=== PATIENT | male | born 2000 | race Two or more races ===

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

== ENCOUNTER 2022-09-11 09:52 | Inpatient (IN) | payer OTHER ==
[~2022-09-11] VITALS: Ht 180.3 cm; Wt 54.1 kg
[2022-09-11 12:18] LABS: AMPHET/METH SCREEN,URINE NEGATIVE (NEGATIVE); BARBITURATE SCREEN, URINE NEGATIVE (NEGATIVE); BENZODIAZEPINES SCREEN,URINE POSITIVE (NEGATIVE); CANNABINOID SCREEN,URINE POSITIVE (NEGATIVE); COCAINE SCREEN,URINE NEGATIVE (NEGATIVE); METHADONE SCREEN, URINE NEGATIVE (NEGATIVE); OPIATE SCREEN,URINE NEGATIVE (NEGATIVE); PHENCYCLIDINE SCREEN,URINE NEGATIVE (NEGATIVE)
[2022-09-11] MEDS ORDERED: ONDANSETRON HCL 4 MG/2 ML VIAL IVP PRN (13:45)
[2022-09-11] MEDS ORDERED: IPRATROPIUM BROMIDE 0.5 MG/2.5 ML NEB SOLUTION NEB PRN (13:45)
[2022-09-11] MEDS ORDERED: DOCUSATE SODIUM 100 MG CAPSULE PO PRN (13:45)
[2022-09-11] MEDS ORDERED: ACETAMINOPHEN 325 MG TABLET PO PRN (13:45)
[2022-09-11] MEDS ORDERED: ALBUTEROL SULFATE 2.5 MG/0.5 ML NEB SOLUTION NEB PRN (13:45)
[2022-09-11] MEDS ORDERED: BISACODYL 10 MG RECTAL RECTAL SUPPOSITORY PR PRN (13:45)
[2022-09-11 20:10] VITALS: BP 137/77
[2022-09-12 00:04] VITALS: BP 109/63
[2022-09-12 04:31] VITALS: BP 106/73
[2022-09-12 08:24] VITALS: BP 126/79
[2022-09-12 15:19] VITALS: BP 134/74
[2022-09-12 19:16] VITALS: BP 121/72
[2022-09-13 04:43] VITALS: BP 123/70
[2022-09-13 09:37] VITALS: BP 128/72
== END 2022-09-13 13:21 | DRG 897 ==
LOC: EMS 09:57 → AHU 14:39 → 6S 18:58
PROVIDERS: ADMIT Internal Medicine; ATTEND Internal Medicine
DX: F13.239 Sedative, hypnotic or anxiolytic dependence with withdrawal, unspecified (principal); F32.A Depression, unspecified; F12.90 Cannabis use, unspecified, uncomplicated; F06.4 Anxiety disorder due to known physiological condition; Z87.891 Personal history of nicotine dependence
CPT/HCPCS: 80307; 99285

== ENCOUNTER 2022-09-17 11:42 | Inpatient (IN) | payer OTHER ==
[~2022-09-17] VITALS: Ht 182.9 cm; Wt 50.0 kg
[2022-09-17 13:16] LABS: BASOPHILS % (AUTO) 0.3 % (0.0-2.0); EOSINOPHILS % (AUTO) 0 % (1.0-6.0); HEMATOCRIT 47.4 % (41-53); HEMOGLOBIN 16.7 g/dL (13.5-17.5); LYMPHOCYTES # (AUTO) 1.1 K/uL (1.0-4.8); LYMPHOCYTES % (AUTO) 11.2 % (22.0-44.0); MEAN CORPUSCULAR HEMOGLOBIN 30.7 pg (26.0-34.0); MEAN CORPUSCULAR HGB CONC 35.3 G/dL (31.0-37.0); MEAN CORPUSCULAR VOLUME 87 fL (80-100); MONOCYTES # (AUTO) 0.7 K/uL (0.1-1.0); MONOCYTES % (AUTO) 7.7 % (2.0-9.0); NEUTROPHILS # (AUTO) 7.9 K/uL (1.8-7.7); NEUTROPHILS % (AUTO) 80.8 % (40.0-70.0); PLATELET COUNT (AUTO) 234 K/uL (150-450); RED BLOOD CELL COUNT(AUTO) 5.44 MIL/uL (4.50-5.90)
[2022-09-17 13:24] LABS: ANION GAP 15 mmol/L (8-16); CALCIUM, TOTAL 8.9 mg/dL (8.8-10.5); CARBON DIOXIDE 23 mmol/L (22-29); CHLORIDE 99 mmol/L (98-107); CREATININE 0.69 mg/dL (0.60-1.30); GLOMERULAR FILTR. RATE CALC > 60 mL/min (>60); GLUCOSE,RANDOM 87 mg/dL (70-110); POTASSIUM 3.2 mmol/L (3.5-5.1); SODIUM SERUM 137 mmol/L (136-145); UREA NITROGEN, BLOOD 10 mg/dL (7-18)
[2022-09-17 13:30] LABS: ALANINE AMINOTRANSFERASE 21 U/L (12-78); ALBUMIN 4.9 g/dL (3.4-5.0); ALKALINE PHOSPHATASE 108 U/L (46-116); ASPARTATE AMINOTRANSFERASE 22 U/L (15-37); BILIRUBIN,TOTAL 1.1 mg/dL (0.1-1.0)
[2022-09-17 15:03] LABS: COVID AG,FIA SOURCE NASOPHARYNGEAL
[2022-09-17] MEDS ORDERED: ONDANSETRON HCL 4 MG/2 ML VIAL IVP PRN (15:15)
[2022-09-17] MEDS ORDERED: ACETAMINOPHEN 325 MG TABLET PO PRN (15:15)
[2022-09-17 20:50] VITALS: BP 114/83
[2022-09-17] MEDS ORDERED: POTASSIUM CHLORIDE 20 MEQ ER TABLET PO ONE (22:15)
[2022-09-18 04:01] VITALS: BP 127/91
[2022-09-18 10:32] VITALS: BP 125/86
[2022-09-18] MEDS ORDERED: MAGNESIUM HYDROXIDE SUSPENSION 30 ML UDCUP PO PRN (12:15)
[2022-09-18] MEDS ORDERED: BISACODYL 10 MG RECTAL RECTAL SUPPOSITORY PR PRN (12:15)
[2022-09-18] MEDS ORDERED: ALBUTEROL SULFATE 2.5 MG/0.5 ML NEB SOLUTION NEB PRN (12:15)
[2022-09-18] MEDS ORDERED: ONDANSETRON HCL 4 MG/2 ML VIAL IVP PRN (12:15)
[2022-09-18] MEDS ORDERED: IPRATROPIUM BROMIDE 0.5 MG/2.5 ML NEB SOLUTION NEB PRN (12:15)
[2022-09-18 14:31] LABS: AMPHET/METH SCREEN,URINE NEGATIVE (NEGATIVE); BARBITURATE SCREEN, URINE NEGATIVE (NEGATIVE); BENZODIAZEPINES SCREEN,URINE NEGATIVE (NEGATIVE); CANNABINOID SCREEN,URINE POSITIVE (NEGATIVE); COCAINE SCREEN,URINE NEGATIVE (NEGATIVE); METHADONE SCREEN, URINE NEGATIVE (NEGATIVE); OPIATE SCREEN,URINE NEGATIVE (NEGATIVE); PHENCYCLIDINE SCREEN,URINE NEGATIVE (NEGATIVE)
[2022-09-18] MEDS: HEPARIN SODIUM,PORCINE 5,000 UNITS/ML VIAL SQ SCH ×2 (16:00→23:31)
[2022-09-18 17:13] VITALS: BP 125/97
[2022-09-18 20:15] VITALS: BP 106/88
[2022-09-19] MEDS: HEPARIN SODIUM,PORCINE 5,000 UNITS/ML VIAL SQ SCH ×3 (08:00→23:35)
[2022-09-19 08:11] VITALS: BP 117/50
[2022-09-19] MEDS: PANTOPRAZOLE SODIUM 40 MG DR TABLET PO SCH (09:00)
[2022-09-19 15:19] VITALS: BP 127/88
[2022-09-19 19:22] VITALS: BP 126/83
[2022-09-19] MEDS: RisperiDONE 1 MG TABLET PO SCH (19:31)
[2022-09-19] MEDS: ACETAMINOPHEN 325 MG TABLET PO PRN (19:31)
[2022-09-19] MEDS: ZOLPIDEM TARTRATE 5 MG TABLET PO PRN (22:04)
[2022-09-20 05:00] VITALS: BP 112/95
[2022-09-20] MEDS: HEPARIN SODIUM,PORCINE 5,000 UNITS/ML VIAL SQ SCH ×2 (08:00→16:03)
[2022-09-20] MEDS: PANTOPRAZOLE SODIUM 40 MG DR TABLET PO SCH (08:08)
[2022-09-20] MEDS: RisperiDONE 1 MG TABLET PO SCH (08:08)
[2022-09-20 09:56] VITALS: BP 116/96
[2022-09-20 17:02] VITALS: BP 118/60
[2022-09-20 19:51] VITALS: BP 145/85
[2022-09-20] MEDS: RisperiDONE 2 MG TABLET PO SCH (20:11)
[2022-09-20] MEDS: ZOLPIDEM TARTRATE 5 MG TABLET PO PRN (20:11)
[2022-09-21 07:57] VITALS: BP 111/73
[2022-09-21] MEDS: PANTOPRAZOLE SODIUM 40 MG DR TABLET PO SCH (08:56)
[2022-09-21] MEDS: RisperiDONE 2 MG TABLET PO SCH ×2 (08:56→20:35)
[2022-09-21] MEDS: HEPARIN SODIUM,PORCINE 5,000 UNITS/ML VIAL SQ SCH ×3 (09:09→15:14)
[2022-09-21 15:13] VITALS: BP 135/92
[2022-09-21 19:42] VITALS: BP 108/72
[2022-09-22 04:35] VITALS: BP 122/77
[2022-09-22 08:00] VITALS: BP 121/77
[2022-09-22] MEDS: RisperiDONE 2 MG TABLET PO SCH ×2 (08:04→20:03)
[2022-09-22] MEDS: PANTOPRAZOLE SODIUM 40 MG DR TABLET PO SCH (08:04)
[2022-09-22] MEDS: HEPARIN SODIUM,PORCINE 5,000 UNITS/ML VIAL SQ SCH ×4 (08:04→20:07)
[2022-09-22 15:31] VITALS: BP 107/68
[2022-09-22 19:37] VITALS: BP 120/75
[2022-09-23 04:20] VITALS: BP 125/70
[2022-09-23] MEDS: RisperiDONE 2 MG TABLET PO SCH ×2 (08:33→19:59)
[2022-09-23] MEDS: HEPARIN SODIUM,PORCINE 5,000 UNITS/ML VIAL SQ SCH ×3 (08:33→22:35)
[2022-09-23] MEDS: PANTOPRAZOLE SODIUM 40 MG DR TABLET PO SCH (08:33)
[2022-09-23 09:27] VITALS: BP 140/69
[2022-09-23 16:05] VITALS: BP 135/81
[2022-09-23 20:29] VITALS: BP 114/82
[2022-09-23] MEDS: ZOLPIDEM TARTRATE 5 MG TABLET PO PRN (21:00)
[2022-09-24 05:02] VITALS: BP 136/82
[2022-09-24] MEDS: THIAMINE 100 MG TABLET PO SCH (08:48)
[2022-09-24] MEDS: HEPARIN SODIUM,PORCINE 5,000 UNITS/ML VIAL SQ SCH ×3 (08:48→22:41)
[2022-09-24] MEDS: FOLIC ACID 1 MG TABLET PO SCH (08:48)
[2022-09-24] MEDS: PANTOPRAZOLE SODIUM 40 MG DR TABLET PO SCH (08:48)
[2022-09-24] MEDS: RisperiDONE 2 MG TABLET PO SCH ×2 (08:48→20:35)
[2022-09-24 08:51] VITALS: BP 116/68
[2022-09-24 11:40] LABS: BASOPHILS % (AUTO) 0.4 % (0.0-2.0); EOSINOPHILS % (AUTO) 1.4 % (1.0-6.0); HEMATOCRIT 44.7 % (41-53); HEMOGLOBIN 15.6 g/dL (13.5-17.5); LYMPHOCYTES # (AUTO) 0.9 K/uL (1.0-4.8); LYMPHOCYTES % (AUTO) 16.7 % (22.0-44.0); MEAN CORPUSCULAR HEMOGLOBIN 30.9 pg (26.0-34.0); MEAN CORPUSCULAR HGB CONC 34.9 G/dL (31.0-37.0); MEAN CORPUSCULAR VOLUME 88 fL (80-100); MONOCYTES # (AUTO) 0.7 K/uL (0.1-1.0); MONOCYTES % (AUTO) 12.7 % (2.0-9.0); NEUTROPHILS # (AUTO) 3.7 K/uL (1.8-7.7); NEUTROPHILS % (AUTO) 68.8 % (40.0-70.0); PLATELET COUNT (AUTO) 209 K/uL (150-450); RED BLOOD CELL COUNT(AUTO) 5.05 MIL/uL (4.50-5.90); RED CELL DISTRIBUTION WIDTH 13.4 % (11.5-14.5)
[2022-09-24 12:12] LABS: ALANINE AMINOTRANSFERASE 16 U/L (12-78); ALBUMIN 3.9 g/dL (3.4-5.0); ALKALINE PHOSPHATASE 86 U/L (46-116); ANION GAP 8 mmol/L (8-16); ASPARTATE AMINOTRANSFERASE 19 U/L (15-37); BILIRUBIN,TOTAL 0.5 mg/dL (0.1-1.0); CALCIUM, TOTAL 8.5 mg/dL (8.8-10.5); CARBON DIOXIDE 29 mmol/L (22-29); CHLORIDE 101 mmol/L (98-107); CREATININE 0.65 mg/dL (0.60-1.30); GLOMERULAR FILTR. RATE CALC > 60 mL/min (>60); GLUCOSE,RANDOM 111 mg/dL (70-110); PHOSPHORUS 3.6 mg/dL (2.5-4.9); POTASSIUM 4.1 mmol/L (3.5-5.1); SODIUM SERUM 138 mmol/L (136-145); TOTAL PROTEIN, SERUM 6.9 g/dL (6.4-8.2); UREA NITROGEN, BLOOD 14 mg/dL (7-18)
[2022-09-24 15:19] VITALS: BP_SYST 115; BP_SYST 94; BP_DIAS 56; BP_DIAS 66
[2022-09-24] MEDS: ZOLPIDEM TARTRATE 5 MG TABLET PO PRN (20:35)
[2022-09-24 21:45] VITALS: BP 105/64
[2022-09-25 06:40] VITALS: BP 108/64
[2022-09-25] MEDS: THIAMINE 100 MG TABLET PO SCH (08:35)
[2022-09-25] MEDS: PANTOPRAZOLE SODIUM 40 MG DR TABLET PO SCH (08:36)
[2022-09-25] MEDS: HEPARIN SODIUM,PORCINE 5,000 UNITS/ML VIAL SQ SCH ×2 (08:36→16:00)
[2022-09-25] MEDS: FOLIC ACID 1 MG TABLET PO SCH (08:36)
[2022-09-25] MEDS: RisperiDONE 2 MG TABLET PO SCH ×2 (08:36→20:18)
[2022-09-25 10:22] VITALS: BP 117/72
[2022-09-25 17:13] VITALS: BP 118/54
[2022-09-25 20:16] VITALS: BP 109/66
[2022-09-25] MEDS: ZOLPIDEM TARTRATE 5 MG TABLET PO PRN (20:18)
[2022-09-25] MEDS ORDERED: MELATONIN 3 MG TABLET PO PRN (22:45)
[2022-09-26 04:02] VITALS: BP 106/66
[2022-09-26] MEDS: FOLIC ACID 1 MG TABLET PO SCH (08:03)
[2022-09-26] MEDS: RisperiDONE 2 MG TABLET PO SCH ×2 (08:03→20:03)
[2022-09-26] MEDS: THIAMINE 100 MG TABLET PO SCH (08:03)
[2022-09-26] MEDS: PANTOPRAZOLE SODIUM 40 MG DR TABLET PO SCH (08:03)
[2022-09-26] MEDS: HEPARIN SODIUM,PORCINE 5,000 UNITS/ML VIAL SQ SCH ×3 (08:03→16:55)
[2022-09-26 08:32] VITALS: BP 133/76
[2022-09-26] MEDS: ACETAMINOPHEN 325 MG TABLET PO PRN (09:18)
[2022-09-26 15:56] VITALS: BP 124/77
[2022-09-26 19:55] VITALS: BP 118/70
[2022-09-27] MEDS: HEPARIN SODIUM,PORCINE 5,000 UNITS/ML VIAL SQ SCH ×3 (00:30→15:14)
[2022-09-27 04:18] VITALS: BP 105/56
[2022-09-27] MEDS: PANTOPRAZOLE SODIUM 40 MG DR TABLET PO SCH (08:58)
[2022-09-27] MEDS: THIAMINE 100 MG TABLET PO SCH (08:58)
[2022-09-27] MEDS: FOLIC ACID 1 MG TABLET PO SCH (08:58)
[2022-09-27] MEDS: RisperiDONE 2 MG TABLET PO SCH ×2 (08:58→20:39)
[2022-09-27 08:59] VITALS: BP 118/68
[2022-09-27 17:27] VITALS: BP 107/67
[2022-09-27] MEDS: ZOLPIDEM TARTRATE 5 MG TABLET PO PRN (20:39)
[2022-09-27 20:52] VITALS: BP 114/61
[2022-09-27] MEDS: ACETAMINOPHEN 325 MG TABLET PO PRN (22:38)
[2022-09-28 05:13] VITALS: BP 127/71
[2022-09-28 07:35] VITALS: BP 114/62
[2022-09-28] MEDS: HEPARIN SODIUM,PORCINE 5,000 UNITS/ML VIAL SQ SCH ×3 (08:00→15:40)
[2022-09-28] MEDS: PANTOPRAZOLE SODIUM 40 MG DR TABLET PO SCH (09:09)
[2022-09-28] MEDS: RisperiDONE 2 MG TABLET PO SCH ×2 (09:09→20:22)
[2022-09-28] MEDS: FOLIC ACID 1 MG TABLET PO SCH (09:09)
[2022-09-28] MEDS: THIAMINE 100 MG TABLET PO SCH (09:09)
[2022-09-28] MEDS ORDERED: FOLI0.4T14 PO (12:52)
[2022-09-28] MEDS ORDERED: RISP2TAB76 PO (12:56)
[2022-09-28] MEDS ORDERED: PANT-31 PO (12:56)
[2022-09-28] MEDS ORDERED: HEPA500018 SQ (12:57)
[2022-09-28] MEDS ORDERED: THIA100T80 PO (12:57)
[2022-09-28] MEDS ORDERED: ACET-784 PO (13:01)
[2022-09-28] MEDS ORDERED: AUD NEB (13:02)
[2022-09-28] MEDS ORDERED: BISA-72 PO (13:03)
[2022-09-28] MEDS ORDERED: IPRNEB IH (13:03)
[2022-09-28] MEDS ORDERED: MAGN-169 PO (13:04)
[2022-09-28] MEDS ORDERED: MELA3TAB89 PO (13:05)
[2022-09-28] MEDS ORDERED: ONDA4VIA60 IVP (13:06)
[2022-09-28] MEDS ORDERED: ZOLP-280 PO (13:07)
[2022-09-28 14:59] VITALS: BP 120/77
[2022-09-28 19:55] VITALS: BP 110/66
[2022-09-29] MEDS: HEPARIN SODIUM,PORCINE 5,000 UNITS/ML VIAL SQ SCH
[2022-09-29 04:20] VITALS: BP 101/63
[2022-09-29 09:49] VITALS: BP 124/73
== END 2022-09-29 08:19 | DRG 71 ==
LOC: EMS 11:46 → AHU 15:11 → 6S 22:00
PROVIDERS: ADMIT Hospitalist; ATTEND Hospitalist
DX: G93.40 Encephalopathy, unspecified (principal); F23 Brief psychotic disorder; R64 Cachexia; Z68.1 Body mass index [BMI] 19.9 or less, adult; F29 Unspecified psychosis not due to a substance or known physiological condition; F19.90 Other psychoactive substance use, unspecified, uncomplicated; E87.6 Hypokalemia; F12.10 Cannabis abuse, uncomplicated; F17.200 Nicotine dependence, unspecified, uncomplicated; Z20.822 Contact with and (suspected) exposure to COVID-19; Z79.899 Other long term (current) drug therapy
CPT/HCPCS: 70450; 80053; 80307; 83735; 84100; 85025; 99285; G0480; J1644